=== PATIENT | female | born 1995 | race Two or more races ===

== ENCOUNTER 2020-09-27 11:30 | Emergency (ER) | payer OTHER ==
[2020-09-27 13:53] LABS: EOSINOPHIL 1.8 % (0-5); HCT 39.3 % (37.0-47.0); HGB 12.5 g/dl (12.5-16.0); LYMPHOCYTE 39.1 % (15-48); MCH 29.5 pg (25.0-31.0); MCHC 31.8 g/dL (32.0-36.0); MCV 92.7 fL (78.0-100.0); MONOCYTE 5.4 % (0-12); MPV 10.8 fL (6.0-9.5); NEUTROPHIL 52.5 % (41-80); NRBC 0; PLT 317 K/uL (150-400); RBC 4.24 M/uL (4.20-5.40); RDW 12.4 % (11.5-14.0)
[2020-09-27 14:01] LABS: BILIRUBIN NEGATIVE (NEGATIVE); BLOOD 3+ Ery/uL (NEGATIVE); GLUCOSE (U) NORMAL (NORMAL); LEUKOCYTES TRACE Leu/uL (NEGATIVE); NITRITE NEGATIVE (NEGATIVE); PROTEIN 1+ mg/dL (NEGATIVE); UROBILINOGEN 0.2 mg/dL (0.2-1.0); pH 7.5 (5.0-9.0)
[2020-09-27 14:02] LABS: CLARITY HAZY (CLEAR); COLOR AMBER (YELLOW)
[2020-09-27 14:08] LABS: URINARY RBC TNTC
[2020-09-27 14:12] LABS: ALBUMIN 3.1 g/dL (3.4-5.0); BILIRUBIN - TOTAL 0.3 mg/dL (0.2-1.0); BUN/CREAT RATIO (CALC) 17.4 RATIO; CREATININE 0.69 mg/dL (0.51-0.95); POTASSIUM 3.7 mmol/L (3.5-5.1); TOTAL PROTEIN 7.1 g/dL (6.4-8.2)
[2020-09-27] MEDS ORDERED: BACTRIM DS TAB1 EACH PO (15:44)
== END 2020-09-27 16:30 | disposition home or self-care (01) ==
LOC: FER 11:30
PROVIDERS: Emergency Medicine
DX: N39.0 Urinary tract infection, site not specified (principal); N93.8 Other specified abnormal uterine and vaginal bleeding; I10 Essential (primary) hypertension
CPT/HCPCS: 36415; 80053; 81001; 85025; 87088; 99284